=== PATIENT | male | born 1955 | race Caucasian/White ===

== ENCOUNTER 2018-12-09 08:31 | Emergency (ER) | payer MEDICAID ==
[2018-12-09] MEDS ORDERED: RINGERS SOLUTION,LACTATED 1,000 ML IV ONE (08:44)
[2018-12-09] MEDS ORDERED: FOLIC ACID 1 MG TABLET PO ONE (08:51)
[2018-12-09] MEDS ORDERED: THIAMINE HCL 100 MG TABLET PO ONE (08:51)
--- NOTE | 2018-12-09 08:57 | ER Document Report ---
ED General - General Chief Complaint: Weakness Stated Complaint: WEAKNESS Time Seen by Provider: 12/09/18 08:42 Primary Care Provider: JASPREET ZAMUDIO MD [Primary Care Provider] - Follow up as needed TRAVEL OUTSIDE OF THE [place] IN LAST 30 DAYS: No - HPI Notes: Patient is a 63-year-old male that presents to the emergency department for chief complaint of generalized weakness and testicular pain. Patient reports history of 3 years sober from alcohol. He states over the weekend he relapsed. Since relapsing he has had about 40 beers. He did drink 3 beers this morning. Patient called EMS for generalized weakness and bilateral testicular pain. He describes the pain as a "moving" and "vibrating" sensation. He denies any penile discharge dysuria or scrotal edema. Patient denies history of testicular issues in the past. He also has not had alcohol withdrawal seizures or hallucinations. Currently patient states he feels like he is starting to become hung over. He feels mild nausea and fatigue. He denies hallucinations, tremors and vomiting. Patient does have a history of spinal cord injury with left-sided hemiparesis and denies change in his left- sided weakness today. Past Medical History: Left-sided hemiparesis Past Surgical History: Spinal surgery Social History: History of alcohol abuse. Denies drug use. Family History: Reviewed and noncontributory for presenting illness Allergies: Reviewed, see documented allergy list. REVIEW OF SYSTEMS: CONSTITUTIONAL : No fever No chills No diaphoresis No recent illness EENT: No vision changes No congestion No sore throat CARDIOVASCULAR: No chest pain No palpitations RESPIRATORY: No shortness of breath No cough No difficulty breathing GASTROINTESTINAL: No abdominal pain nausea No vomiting No diarrhea GENITOURINARY: No dysuria No hematuria No difficulty urinating Testicular pain MUSCULOSKELETAL: No back pain No leg pain No arm pain SKIN: No rashes No lesions LYMPHATIC: No swollen, enlarged glands. NEUROLOGICAL: No lightheadedness No headache weakness No paresthesias PSYCHIATRIC: No anxiety No depression PHYSICAL EXAMINATION: Vital signs reviewed, nursing noted reviewed. GENERAL: Alert, well-nourished and in no acute distress. HEAD: Atraumatic, normocephalic. EYES: Eyes appear normal, extraocular movements intact, sclera anicteric, co njunctiva are normal. ENT: nares patent, oropharynx clear without exudates. Dry mucous membranes. NECK: Normal range of motion, supple without lymphadenopathy LUNGS: Breath sounds clear to auscultation bilaterally and equal. No wheezes rales or rhonchi. HEART: Regular rate and rhythm without murmurs ABDOMEN: Soft, nontender, normoactive bowel sounds. No rebound, guarding, or rigidity. No masses appreciated. : No penile discharge, penis circumcised without lesions or tenderness. No sc rotal edema or erythema bilaterally. No testicular tenderness. No scrotal masses. Normal cremasteric reflex bilaterally. EXTREMITIES: Nontender, good range of motion, no pitting or edema. NEUROLOGICAL: Left upper and lower extremity motor weakness compared to right but still 5/5. Left upper and lower extremity paresthesias. GCS 15. A&O x3. PSYCH: Normal mood, normal affect. SKIN: Warm, Dry, normal turgor, no rashes or lesions noted on exposed skin - Related Data Allergies/Adverse Reactions: No Known Allergies Allergy (Verified 07/31/15 12:10) Past Medical History - Social History Smoking Status: Current Every Day Smoker Family History: Reviewed & Not Pertinent Pulmonary Medical History: Reports: Hx COPD Past Surgical History: Reports: Hx Orthopedic Surgery - Spinal - Immunizations Hx Diphtheria, Pertussis, Tetanus Vaccination: Yes - 2011 Physical Exam - Vital signs Vitals: Temp Pulse Resp BP Pulse Ox 98.0 F 100 18 132/82 H 96 12/09/18 08:51 12/09/18 08:51 12/09/18 08:51 12/09/18 08:51 12/09/18 08:51 Course - Re-evaluation Re-evalutation: 12/09/18 08:56 Vitals reviewed. Nurse notes reviewed. Patient is alert and oriented. He has chronic left-sided weakness which is unchanged on exam. He has no new focal neurologic deficits. Patient's testicular and scrotal exam is unremarkable. Scrotal ultrasound has been ordered for further investigation into his testicular pain. Patient started on IV fluids, thiamine and folate for alcohol abuse. Currently he has no symptoms of acute alcohol withdrawal. 12/09/18 11:17 Patient reevaluated and states he is feeling better. He is not tremulous or tachycardic. Blood alcohol level was 62. Patient is speaking in full sentences and able to stand and ambulate. Clinically he is not intoxicated. Patient's lab work shows a mild hyponatremia which on chart review he has had previously when drinking alcohol. I did parliamentary counsel him on this and the need for him to stop alcohol and begin increasing the amount of water he drinks daily. Patient was offered transfer to [facility] for alcohol detox but he declined. Patient scrotal ultrasound is negative. His sensation of vibration may be related to the alcohol intoxication or hyponatremia. Patient told to follow with his primary care doctor for reevaluation and repeat blood work in 1 week. He was counseled on return precautions. He is stable at discharge. Laboratory 12/09/18 12/09/18 12/09/18 09:20 09:20 09:20 WBC 7.2 RBC 4.59 Hgb 14.6 Hct 42.3 MCV 92 MCH 31.8 MCHC 34.5 RDW 13.2 Plt Count 197 Lymph % (Auto) 12.0 L [place] % (Auto) 9.3 Eos % (Auto) 0.3 Baso % (Auto) 0.6 Absolute Neuts (auto) 5.6 Absolute Lymphs (auto) 0.9 Absolute Monos (auto) 0.7 Absolute Eos (auto) 0.0 Absolute Basos (auto) 0.0 Seg Neutrophils % 77.8 Sodium 128.7 L Potassium 3.7 Chloride 92 L Carbon Dioxide 22 Anion Gap 15 BUN 5 L Creatinine 0.62 Est GFR ( Amer) > 60 Est GFR (MDRD) Non-Af > 60 Glucose 98 Calcium 8.8 Total Bilirubin 0.3 Direct Bilirubin 0.1 Neonat Total Bilirubin Not Reportable Neonat Direct Bilirubin Not Reportable Neonat Indirect Bili Not Reportable AST 30 ALT 17 Alkaline Phosphatase 48 Creatine Kinase 257 H Troponin I < 0.012 Total Protein 7.0 Albumin 4.1 Urine Color Urine Appearance Urine pH Ur Specific Happy Urine Protein Urine Glucose (UA) Urine Ketones Urine Blood Urine Nitrite Urine Bilirubin Urine Urobilinogen Ur Leukocyte Esterase Urine WBC (Auto) Urine RBC (Auto) Urine Mucus (Auto) Urine Ascorbic Acid Urine Opiates Screen Urine Methadone Screen Ur Barbiturates Screen Ur Phencyclidine Scrn Ur Amphetamines Screen U Benzodiazepines Scrn Urine Cocaine Screen U Marijuana (THC) Screen Serum Alcohol 62 12/09/18 12/09/18 09:20 09:20 WBC RBC Hgb Hct MCV MCH MCHC RDW Plt Count Lymph % (Auto) [place] % (Auto) Eos % (Auto) Baso % (Auto) Absolute Neuts (auto) Absolute Lymphs (auto) Absolute Monos (auto) Absolute Eos (auto) Absolute Basos (auto) Seg Neutrophils % Sodium Potassium Chloride Carbon Dioxide Anion Gap BUN Creatinine Est GFR ( Amer) Est GFR (MDRD) Non-Af Glucose Calcium Total Bilirubin Direct Bilirubin Neonat Total Bilirubin Neonat Direct Bilirubin Neonat Indirect Bili AST ALT Alkaline Phosphatase Creatine Kinase Troponin I Total Protein Albumin Urine Color YELLOW Urine Appearance CLEAR Urine pH 6.0 Ur Specific Happy 1.006 Urine Protein NEGATIVE Urine Glucose (UA) NEGATIVE Urine Ketones TRACE H Urine Blood NEGATIVE Urine Nitrite NEGATIVE Urine Bilirubin NEGATIVE Urine Urobilinogen NEGATIVE Ur Leukocyte Esterase NEGATIVE Urine WBC (Auto) 1 Urine RBC (Auto) 1 Urine Mucus (Auto) RARE Urine Ascorbic Acid NEGATIVE Urine Opiates Screen NEGATIVE Urine Methadone Screen NEGATIVE Ur Barbiturates Screen NEGATIVE Ur Phencyclidine Scrn NEGATIVE Ur Amphetamines Screen NEGATIVE U Benzodiazepines Scrn NEGATIVE Urine Cocaine Screen NEGATIVE U Marijuana (THC) Screen NEGATIVE Serum Alcohol Scrotum Ultrasound 12/09/18 08:50 IMPRESSION: 1. No testicular mass or evidence of torsion. 2. No evidence of epididymitis. 3. No hydrocele. - Vital Signs Vital signs: Temp Pulse Resp BP Pulse Ox 98.0 F 100 18 132/82 H 96 12/09/18 08:51 12/09/18 08:51 12/09/18 08:51 12/09/18 08:51 12/09/18 08:51 - Laboratory Result Diagrams: 12/09/18 09:20 12/09/18 09:20 Laboratory results interpreted by me: 12/09/18 12/09/18 12/09/18 09:20 09:20 09:20 Lymph % (Auto) 12.0 L Sodium 128.7 L Chloride 92 L BUN 5 L Creatine Kinase 257 H Urine Ketones TRACE H - EKG Interpretation by Me Additional EKG results interpreted by me: 12/09/18 09:48 Interpreted by myself 0931: Normal sinus rhythm, rate 91, normal axis, low voltage, no STEMI, no significant change from 07/31/2015 Discharge - Discharge Clinical Impression: Hyponatremia, Generalized weakness Alcohol intoxication Qualifiers: Complication of substance-induced condition: uncomplicated Qualified Code(s): F10.920 - Alcohol use, unspecified with intoxication, uncomplicated Condition: Stable Disposition: HOME, SELF-CARE Instructions: Alcohol Withdrawl ([facility]), Chronic Alcoholism ([facility]), Hyponatremia ([facility]) Additional Instructions: You need to have your sodium rechecked by your primary care doctor this week Please return to the emergency department if you have any worsening, or concern of your symptoms. Please return to the emergency department if you develop tremors, hallucinations, chest pain, difficulty breathing, severe abdominal pain, or ongo ing vomiting. Please follow-up with your primary care physician in 2-3 days and any other recommended physicians. If prescribed, take all medications as directed. If you have any questions or concerns do not hesitate to return the emergency department for evaluation. Contact for Alcohol detox if desired [facility] Address: [address] [place] [address], [place] [address] Open 24 hours Referrals: JASPREET ZAMUDIO MD [Primary Care Provider] - Follow up in 3-5 days
[2018-12-09 09:28] LABS: ABSOLUTE LYMPHOCYTES (AUTO) 0.9 10^3/uL (0.5-4.7); ABSOLUTE MONOCYTES (AUTO) 0.7 10^3/uL (0.1-1.4); ABSOLUTE NEUT (AUTO) 5.6 10^3/uL (1.7-8.2); BASOPHILS % (AUTO) 0.6 % (0-2); EOSINOPHILS % (AUTO) 0.3 % (0-6); HEMATOCRIT 42.3 % (37.9-51.0); HEMOGLOBIN 14.6 g/dL (13.5-17.0); MEAN CORPUSCULAR HEMOGLOBIN 31.8 pg (27.0-33.4); MEAN CORPUSCULAR HGB CONC 34.5 g/dL (32.0-36.0); MEAN CORPUSCULAR VOLUME 92 fl (80-97); MONOCYTES % (AUTO) 9.3 % (3-13); PLATELET COUNT 197 10^3/uL (150-450); RED BLOOD COUNT 4.59 10^6/uL (4.35-5.55); RED CELL DISTRIBUTION WIDTH 13.2 % (11.5-14.0); SEGMENTED NEUTROPHILS % (AUTO) 77.8 % (42-78); TOTAL CELLS COUNTED % (AUTO) 100 %; WHITE BLOOD COUNT 7.2 10^3/uL (4.0-10.5)
[2018-12-09 09:47] LABS: ALBUMIN 4.1 g/dL (3.5-5.0); ALCOHOL 62 mg/dL (NONE DETECTED); ALKALINE PHOSPHATASE 48 U/L (38-126); ANION GAP 15 (5-19); ASPARTATE AMINO TRANSFERASE 30 U/L (17-59); BILIRUBIN,DIRECT 0.1 mg/dL (0.0-0.4); BILIRUBIN,TOTAL 0.3 mg/dL (0.2-1.3); BLOOD UREA NITROGEN 5 mg/dL (7-20); CALCIUM 8.8 mg/dL (8.4-10.2); CARBON DIOXIDE 22 mmol/L (22-30); CHLORIDE 92 mmol/L (98-107); CREATINE KINASE 257 U/L (55-170); GLUCOSE 98 mg/dL (75-110); POTASSIUM 3.7 mmol/L (3.6-5.0)
[2018-12-09 09:49] LABS: APPEARANCE,URINE CLEAR; BILIRUBIN,URINE NEGATIVE (NEGATIVE); COLOR,URINE YELLOW; GLUCOSE, URINE NEGATIVE (NEGATIVE); KETONES,URINE TRACE mg/dL (NEGATIVE); LEUKOCYTE ESTERASE,URINE NEGATIVE (NEGATIVE); NITRITE,URINE NEGATIVE (NEGATIVE); PROTEIN,URINE NEGATIVE (NEGATIVE); URINE SPECIFIC GRAVITY 1.006; UROBILINOGEN,URINE NEGATIVE mg/dL (<2.0)
[2018-12-09 10:09] LABS: URINE AMPHETAMINES SCREEN NEGATIVE; URINE BARBITURATES SCREEN NEGATIVE; URINE BENZODIAZEPINES SCREEN NEGATIVE; URINE COCAINE SCREEN NEGATIVE; URINE MARIJUANA (THC) SCREEN NEGATIVE; URINE METHADONE SCREEN NEGATIVE; URINE PHENCYCLIDINE SCREEN NEGATIVE
--- NOTE | 2018-12-09 11:02 | RADIOLOGY REPORT (SQ) ---
EXAM DESCRIPTION: U/S SCROTUM W/DOPPLER COMPLETED DATE/TIME: 12/09/2018 10:18 am REASON FOR STUDY: bilateral testicular pain COMPARISON: None. TECHNIQUE: Static and realtime cervantes scale imaging of the scrotum and testes. Selected color Doppler and spectral images recorded to document blood flow. LIMITATIONS: None. FINDINGS: RIGHT: TESTICLE: The testicle measures 4.4 x 3.1 x 2.1 cm. The echotexture of the testicle is normal and th ere is no testicular mass. On Doppler there is intact arterial inflow and venous outflow within the testicle. EPIDIDYMIS: The epididymis measures 7 x 9 x 8 mm. There is no evidence of hypervascularity on Dopple r. HYDROCELE OR VARICOCELE: No. HERNIA OR EXTRA-TESTICULAR MASS: No. OTHER: No other finding. LEFT: TESTICLE: The testicle measures 4.3 x 2.8 x 2.4 cm. The echotexture of the testicle is normal and th ere is no testicular mass. On Doppler there is intact arterial inflow and venous outflow within the testicle. EPIDIDYMIS: The epididymis measures 12 x 6 x 9 mm. There is no evidence of hypervascularity on Doppl er. HYDROCELE OR VARICOCELE: No. HERNIA OR EXTRA-TESTICULAR MASS: No. OTHER: No other finding. IMPRESSION: 1. No testicular mass or evidence of torsion. 2. No evidence of epididymitis. 3. No hydrocele. TECHNICAL DOCUMENTATION: JOB ID: [id number] [facility]- All Rights Reserved Reading location - IP/workstation name: [email or web address]
[2018-12-09 11:21] VITALS: BP 143/82
--- NOTE | 2018-12-09 23:49 | EKG REPORT ---
SEVERITY:- OTHERWISE NORMAL ECG - SINUS RHYTHM LOW VOLTAGE IN FRONTAL LEADS : Confirmed by: Nuvia Martinez MD 09-Dec-2018 23:49:11
== END 2018-12-09 11:25 | disposition home or self-care (01) ==
LOC: ER 08:31
DX: R53.1 Weakness (principal); E87.1 Hypo-osmolality and hyponatremia; F10.920 Alcohol use, unspecified with intoxication, uncomplicated; N50.812 Left testicular pain; N50.811 Right testicular pain; R11.0 Nausea; R53.83 Other fatigue; G81.94 Hemiplegia, unspecified affecting left nondominant side; Z87.828 Personal history of other (healed) physical injury and trauma; F17.200 Nicotine dependence, unspecified, uncomplicated; J44.9 Chronic obstructive pulmonary disease, unspecified
CPT/HCPCS: 93005; 36415; 80307 ×2; 82550; 85025; 80053; 81001; 84484; 76870; 93976; 93010; J3490 ×2; J7120; 96360; 99284